=== PATIENT | male | born 1955 | race Caucasian/White ===

== ENCOUNTER 2019-11-21 05:12 | Inpatient (IN) ==
--- NOTE | 2019-10-23 15:09 | PAT Medication Instructions ---
Medication Instructions Date of Service October 23, 2019 Home Medications Potassium -- Otc 1 dose PO QAM aspirin 81 mg PO QAM cyanocobalamin (vitamin B-12) 1,000 mcg PO QAM metformin 1,000 mg PO BID venlafaxine [Effexor XR] 75 mg PO QAM venlafaxine [Effexor XR] 150 mg PO QAM ASK your surgeon for instructions aspirin 81 mg PO QAM DO NOT take the morning of surgery Potassium -- Otc 1 dose PO QAM cyanocobalamin (vitamin B-12) 1,000 mcg PO QAM metformin 1,000 mg PO BID Take morning of surgery With a small sip of water, OTHERWISE NOTHING TO EAT OR DRINK AFTER MIDNIGHT: venlafaxine [Effexor XR] 75 mg PO QAM venlafaxine [Effexor XR] 150 mg PO QAM Other Notes If you have any questions please call us at [phone] or [phone] or [phone] or [phone]
--- NOTE | 2019-10-24 14:06 | Anesthesiology Consultation ---
Date of Service October 24, 2019 Assessment & Plan (1) Encounter for pre-operative examination: COVID Status: As of 10/23 assessment, patient denies travel to endemic area, known exposure/sick contacts, or symptoms of COVID19. Patient instructed that they and their household members must follow strict social distancing guidelines, wear a mask in public and avoid travel for 14 days prior to surgery. 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 He states he has little to no contact with other people on his job, all deliveries are contactless, and he wears a mask. Preoperative COVID19 testing to be completed prior to surgery per surgeon's arrangements. Patient made aware to self-isolate as much as possible between COVID testing and surgery. Chart Review Chart Review: Acceptable Risk for Surgery and Patient seen in Pre Admission Testing Teaching & Discussion Instructed NPO after midnight before surgery, except medications with 15 cc of water. Medication instructions provided according to the PAT guidelines. History Surgery Operation Date: 11/21/19 10:50 Proposed Procedures p Left Total Ankle Arthroplasty, - Arcadio Nunez DO s Percutaneous Tendon Achilles Lenghtening, Application of Platelet-Rich Plasma - Arcadio Nunez DO Height/Weight Height: 6 ft Weight: 111.9 kg Allergies Allergy/AdvReac Type Severity Reaction Status Date / Time fluticasone Allergy Mild Unknown Verified 10/21/19 10:21 Medications Home Medications Medication Instructions Recorded Confirmed Last Taken Potassium -- Otc 1 dose PO QAM 10/21/19 10/21/19 Unknown aspirin 81 mg PO QAM 10/21/19 10/21/19 Unknown cyanocobalamin (vitamin B-12) 1,000 mcg PO QAM 10/21/19 10/21/19 Unknown [Vitamin B-12] metformin 1,000 mg PO BID 10/21/19 10/21/19 Unknown venlafaxine [Effexor XR] 75 mg PO QAM 10/21/19 10/21/19 Unknown venlafaxine [Effexor XR] 150 mg PO QAM 10/21/19 10/21/19 Unknown Past Medical History Medical History Anxiety Borderline hyperlipidemia COPD (chronic obstructive pulmonary disease) hasn't used inh in over a year Depression DM type 2 (diabetes mellitus, type 2) NIDDM History of anal fissures s/p surgical repair Exercise / Class Metabolic Activity II 4-5 Yardwork/Stairs/Walk up hill (Denies CP or SOB with 1 FOS) Past Family History Family History Father Diabetes Other No family history of adverse response to anesthesia Past Surgical History Surgical History History of ankle surgery Left History of cataract surgery History of colonoscopy History of esophagogastroduodenoscopy (EGD) History of wisdom tooth extraction Past Anesthesia History No Hx of Anesthesia Complications and No Family Hx of Anesthesia Complications History of PONV No Hx of PONV and No Hx of Motion Sickness Social History Smoking Status: Former smoker Do You Dip or Chew Tobacco: No Smoking End Date: 15 years ago Hx Alcohol Use: No Hx Substance Use: No substance use type: does not use Review of Systems Pt denies any recent chest pain, shortness of breath, palpitations, cough, fever, URI, or uncontrolled acid reflux. Physical Exam Vital Signs BP: 131/76 P: 85bpm SPO2: 96% RA T: 98.5 F R: 16 ENMT Mouth: + chipped teeth (several broken/chipped incisors); no dental restorations and no loose teeth Thyromental Distance: > or= 3.5 Finger Breadths (3.5) Mallampati Class: I Mouth / Teeth: 1. broken 2. chipped Neck normal visual inspection and + facial hair (medium length goatee, pt amenable to shaving prior to surgery); neck extension not limited Respiratory normal respiratory effort Auscultation: lungs clear to auscultation bilaterally Cardiovascular Rate/Rhythm: regular rate and regular rhythm Heart Sounds: no murmur Vessels: no carotid bruit Testing Laboratory Results 10/24/19 14:20 10/24/19 14:20 PT 10.3 Seconds (9.0-12.0) 10/24/19 14:20 INR 1.0 (0.9-1.1) 10/24/19 14:20 APTT 26.4 Seconds (21.0-31.0) 10/24/19 14:20 Hemoglobin A1c 7.4 % (4.5-5.6) H 10/24/19 14:20 Urine Color Yellow 10/24/19 Unknown Urine Appearance Clear (Clear) 10/24/19 Unknown Urine pH 5.0 (4.5-7.5) 10/24/19 Unknown Ur Specific [place] 1.021 (1.000-1.030) 10/24/19 Unknown Urine Protein Negative (Negative) 10/24/19 Unknown Urine Glucose (UA) Negative (Negative) 10/24/19 Unknown Urine Ketones Negative (Negative) 10/24/19 Unknown Urine Nitrite Negative (Negative) 10/24/19 Unknown Ur Leukocyte Esterase Negative (Negative) 10/24/19 Unknown Blood Type A Positive 10/24/19 14:20 Antibody Screen NEGATIVE 10/24/19 14:20 Electrocardiogram Date: 10/24/19 Findings: + NSR @ (82bpm) Nonspecific ST and TWA. Compared to EKG from 12/03/06, NSTWA, worse in inferior leads and now present in lateral leads. Chest X-Ray Date: 10/24/19 Findings: + NAD
--- NOTE | 2019-10-24 14:50 | XRay Report ---
XR chest Pre-admission PA/Lat HISTORY: 63 years-old Male pat preoperative exam. No acute chest complaints COMPARISON: None TECHNIQUE: PA and lateral views of the chest FINDINGS: Cardiomediastinal and hilar silhouettes are within normal limits. There are a few scattered calcified granulomata of the lung bases. No pneumothorax, pleural effusion, airspace consolidation or overt pu lmonary edema. Degenerative changes of the shoulders and spine. IMPRESSION: No acute process. ACT 112: Negative or not required by law. The above report was generated using voice recognition software. It may contain grammatical, syntax o r spelling errors. Electronically signed by: Claudio Miller M.D. 10/24/2019 2:49 PM
[2019-10-24 15:00] LABS: Basophils # (auto) 0.07 K/uL (0-0.2); Basophils % (auto) 1.2 %; Eosinophils # (auto) 0.28 K/uL (0-0.5); Eosinophils % (auto) 4.8 %; Hematocrit (blood only) 42.4 % (42-52); Hemoglobin 14.5 g/dL (14.0-18.0); Immature Granulocytes # (auto) 0.02 K/uL (0.00-0.02); Immature Granulocytes % (auto) 0.3 %; Lymphocytes % (auto) 31.1 %; Mean Corpuscular Hemoglobin 30.3 pg (25-34); Mean Corpuscular Hgb Conc 34.2 g/dL (32-36); Mean Corpuscular Volume 88.5 fL (80-100); Mean Platelet Volume 10.1 fL (7.4-10.4); Monocytes # (auto) 0.49 K/uL (0.11-0.59); Monocytes % (auto) 8.5 %; Neutrophils # (auto) 3.12 K/uL (1.4-6.5); Neutrophils % (auto) 54.1 %; Platelet Count 237 K/uL (130-400); RDW Coefficient of Variation 13.1 % (11.5-14.5); RDW Standard Deviation 42.8 fL (36.4-46.3); Red Blood Count 4.79 M/uL (4.7-6.1); White Blood Count 5.78 K/uL (4.8-10.8)
[2019-10-24 15:07] LABS: Albumin Level 3.8 gm/dl (3.4-5.0); BUN Creatinine Ratio 12.8 (10-20); Calcium 9.3 mg/dl (8.5-10.1); Creatinine Clr Calc Pharmacy 88.3 ml/min; Est GFR (African American) 81.2; Potassium 4.4 mmol/L (3.5-5.1)
[2019-10-24 15:07] LABS: Appearance Urine Clear (Clear); Bilirubin Urine Negative (Negative); Blood Urine Negative (Negative); Color Urine Yellow; Glucose Urine UA Negative (Negative); Ketones Urine Negative (Negative); Leukocyte Esterase Urine Negative (Negative); Nitrite Urine Negative (Negative); Protein Urine Negative (Negative); Specific Gravity Urine 1.021 (1.000-1.030); Urobilinogen Urine Negative (Negative)
[2019-10-24 15:10] LABS: Partial Thromboplastin Ratio 0.9; Partial Thromboplastin Time 26.4 Seconds (21.0-31.0); Prothrombin Time 10.3 Seconds (9.0-12.0)
--- NOTE | 2019-10-24 16:12 | Electrocardiogram Report ---
Test Reason : Blood Pressure : / mmHG Vent. Rate : 082 BPM Atrial Rate : 082 BPM P-R Int : 136 ms QRS Dur : 100 ms QT Int : 400 ms P-R-T Axes : 049 042 022 degrees QTc Int : 467 ms Normal sinus rhythm Nonspecific ST and T wave abnormality Abnormal ECG When compared with ECG of 03-DEC-2006 22:28, Nonspecific T wave abnormality, worse in Inferior leads Nonspecific T wave abnormality now evident in Lateral leads Confirmed by Rosas Castañeda ([id number]) on 10/24/2019 4:12:42 PM Referred By: Candy Tinajero Confirmed By:Rosas Castañeda
[2019-10-25 05:50] LABS: Estimated Average Glucose 166 mg/dl; Hemoglobin A1C 7.4 % (4.5-5.6)
--- NOTE | 2019-11-20 14:30 | History & Physical Report ---
Date of Service November 20, 2019 Assessment & Plan (1) Osteoarthritis of left ankle: Schedule Left Total Ankle Arthroplasty, Percutaneous Tendon Achilles Lenghtening, Application of Platelet-Rich Plasma for 11.21.2019. All potential risks, benefits, complications, alternatives, and rehab have been discussed with the patient and he wishes to proceed. Plan for ASA 81 mg BID x 4 wks for post op DVT prophylaxis. (2) Achilles tendon contracture, left: History of Present Illness Chief Complaint: chronic left ankle pain Primary Care Provider: Candy Tinajero MD This is a patient who has a long hx of left ankle pain. He was treated conservatively for left ankle osteoarthritis. However, he has failed all conservative management and is now being set up for surgical management. Allergies Allergy/AdvReac Type Severity Reaction Status Date / Time fluticasone Allergy Mild Unknown Verified 10/21/19 10:21 Home Medications Home Medications Medication Instructions Recorded Confirmed Type Potassium -- Otc 1 dose PO QAM 10/21/19 10/21/19 History aspirin 81 mg PO QAM 10/21/19 10/21/19 History cyanocobalamin (vitamin B-12) 1,000 mcg PO QAM 10/21/19 10/21/19 History [Vitamin B-12] metformin 1,000 mg PO BID 10/21/19 10/21/19 History venlafaxine [Effexor XR] 75 mg PO QAM 10/21/19 10/21/19 History venlafaxine [Effexor XR] 150 mg PO QAM 10/21/19 10/21/19 History Past Med/Surg History Medical History Anxiety Borderline hyperlipidemia COPD (chronic obstructive pulmonary disease) hasn't used inh in over a year Depression DM type 2 (diabetes mellitus, type 2) NIDDM History of anal fissures s/p surgical repair Surgical History History of ankle surgery Left History of cataract surgery History of colonoscopy History of esophagogastroduodenoscopy (EGD) History of wisdom tooth extraction Family History Father Diabetes Other No family history of adverse response to anesthesia Social History Smoking Status: Former smoker Smoking End Date: 15 years ago; Second Hand Exposure: No; Do You Dip or Chew Tobacco: No; Tobacco Cessation Education Requested by Patient: No Hx Alcohol Use: No Hx Substance Use: No Preferred Language: Sammarinese Communication Ability: Effective Signals Intelligence Analyst Required: No Beliefs That Will Affect Care: None Current Living Situation: Spouse Feels Safe at Home: Yes Safety Concerns: Feels Safe At This Time Physical Exam Constitutional: well developed and well nourished; no acute distress ENMT: external ear and nose normal, oropharynx normal Neck: trachea midline, no thyromegaly Respiratory: normal respiratory effort Auscultation: lungs clear to auscultation bilaterally and + diminished lung sounds Cardiovascular: Rate/Rhythm: regular rate and regular rhythm Gastrointestinal (Abdomen): normal bowel sounds, soft, nontender, no hepatosplenomegaly Musculoskeletal: Gait: + antalgic gait (left) Ankle: + effusion (left ankle), + limited ROM of ankle (left ankle dorsiflexion and plantarflexion), + ankle ROM with crepitation (left) and + joint line tenderness (ankle) (anterior left ankle); no skin erythema and no ecchymosis Skin: no rashes, warm and dry Neurologic: normal touch/pain/proprioception Psychiatric: A+Ox3, euthymic affect Speech: normal rate/rhythm/volume of speech Lymphatic: no cervical or axillary lymphadenopathy
[2019-11-21] MEDS ORDERED: ROPIVACAINE 0.5% 5 MG/ML 30 ML VIAL ONE ×2 (05:43→07:10)
[2019-11-21] MEDS ORDERED: EPINEPHrine INJ 1 MG/ML AMP ONE (05:43)
[2019-11-21] MEDS ORDERED: dexAMETHasone 4 MG TAB PO SCH (06:00)
[2019-11-21] MEDS ORDERED: CEFAZOLIN 2000MG 2,000 MG/15 ML SYR IV SCH (06:00)
[2019-11-21] MEDS ORDERED: CeleBREX 200 MG CAP PO SCH (06:00)
[2019-11-21] MEDS ORDERED: ACETAMINOPHEN 500 MG TAB PO SCH (06:00)
[2019-11-21] MEDS ORDERED: GABAPENTIN 600 MG DOSE PO SCH (06:00)
[2019-11-21] MEDS ORDERED: FAMOTIDINE 20 MG TAB PO SCH (06:00)
[2019-11-21] MEDS ORDERED: LR 15ML/HR IV SCH (06:00)
[2019-11-21] MEDS ORDERED: METOCLOPRAMIDE HCL 10 MG TABLET PO SCH (06:00)
[2019-11-21] MEDS ORDERED: OXYCODONE HCL 10 MG TABCR (OXYCONTIN) PO SCH (06:00)
[2019-11-21] MEDS ORDERED: MIDAZOLAM HCL 1 MG/ML 2ML VIAL ONE (06:36)
[2019-11-21] MEDS ORDERED: fentaNYL citrate 100 MCG/2 ML VIAL ONE ×2 (06:36→10:46)
[2019-11-21] MEDS ORDERED: INSULIN ASPART PER UNIT SC STA ×2 (06:58→11:08)
[2019-11-21] MEDS ORDERED: ePHEDrine sulfate 50 MG/ML AMP IV PRN (06:59)
[2019-11-21] MEDS ORDERED: HYDROmorphone INJ 1 MG/ML SYRINGE IV PRN (06:59)
[2019-11-21] MEDS ORDERED: fentaNYL citrate 100 MCG/2 ML VIAL IV PRN (06:59)
[2019-11-21] MEDS ORDERED: MEPERIDINE HCL 25 MG/ML CARP/VIAL IV PRN (06:59)
[2019-11-21] MEDS ORDERED: ONDANSETRON INJ 2 MG/ML 2 ML VIAL IV PRN ×2 (06:59→12:28)
[2019-11-21] MEDS ORDERED: LABETALOL HCL IV 5 MG/ML 20ML IV PRN (06:59)
[2019-11-21] MEDS ORDERED: ATROPINE SULFATE 0.1 MG/ML 10ML SYR IV PRN (06:59)
[2019-11-21] MEDS ORDERED: PHENYLEPHRINE 100MCG/ML 5ML SYR IV PRN (06:59)
[2019-11-21] MEDS ORDERED: INSULIN ASPART PER UNIT ONE (07:00)
[2019-11-21] MEDS ORDERED: CALCIUM CHLORIDE 10% 10 ML SYR IV ONE (07:01)
[2019-11-21] MEDS ORDERED: THROMBIN 5000 UNITS KIT ONE (07:01)
[2019-11-21] MEDS ORDERED: BACITRACIN INJ 50,000 UNIT VIAL ONE (07:01)
--- NOTE | 2019-11-21 07:31 | History & Physical Bridge Note ---
Date of Service November 21, 2019 History & Physical Bridge Note I have examined the patient, reviewed the History & Physical and in the interval since the performance of the History & Physical I have noted the following changes of clinical significance: no changes noted
[2019-11-21] MEDS ORDERED: PROPOFOL IV EMULSION 10 MG/ML 20 ML VIAL IV ONE (10:00)
[2019-11-21] MEDS ORDERED: LIDOCAINE HCL 2% 2 ML VIAL/AMP(20MG/ML) INFIL ONE (10:00)
[2019-11-21] MEDS ORDERED: ONDANSETRON INJ 2 MG/ML 2 ML VIAL ONE (10:00)
[2019-11-21] MEDS ORDERED: KETOROLAC 30 MG/ML VIAL ONE (10:00)
--- NOTE | 2019-11-21 10:30 | Fluoroscopy Report ---
[place] ankle LT 2V HISTORY: 63 years-old Male LEFT ANKLE tibiotalar arthroplasty COMPARISON: None TECHNIQUE: 2 spot fluoroscopic images of the left ankle were obtained utilizing 118.4 seconds fluoros copy time FINDINGS: Tibiotalar arthroplasty. Satisfactory alignment. No acute fracture. There is suggestion of hardware r emoval of the distal metaphysis. Expected postsurgical soft tissue swelling and deep tissue air with skin jyothi. Severe subtalar osteoarthritis. IMPRESSION: Fluoroscopic assistance as above. Please see operative report for further details. ACT 112: Negative or not required by law. The above report was generated using voice recognition software. It may contain grammatical, syntax o r spelling errors. Electronically signed by: Claudio Miller M.D. 11/21/2019 10:29 AM
--- NOTE | 2019-11-21 11:04 | Post Operative Brief Note ---
Immediate Post Op Note v1 Date of Surgery November 21, 2019 Pre & Post Diagnosis Operation Date: 11/21/19 07:15 Pre-Op Diagnosis: Left ankle osteoarthritis, degenerative joint disease left ankle, Achilles tendon contracture left, varus deformity left ankle Post-Op Diagnosis: Left ankle osteoarthritis, degenerative joint disease left ankle, Achilles tendon contracture left, varus deformity left ankle I identified the patient and participated in the time-out.: Yes Procedure Operation Date: 11/21/19 07:15 Actual Procedures p Left Total Ankle Arthroplasty, STAR total ankle replacement (large talus, extra-large tibia, 9 mm polyethylene) (Left) - Arcadio Nunez DO s Percutaneous Tendon Achilles Lengthening, Application of Platelet-Rich Plasma concentrate- Arcadio Nunez DO Surgeon Arcadio Nunez DO Seal Skinner Christopher Muller PA-C Estimated Blood Loss 5 Findings Consistent with Post-Op Diagnosis Specimens Bone and tissue left ankle Drains Hemovac Drain Anesthesia Type General Regional Complications none Disposition Accompanied Patient To Recovery: Yes Disposition: Recovery Room Overlapping Procedure I was present for: the critical portions of procedure. I was immediately available: during the entire case.
[2019-11-21] MEDS ORDERED: NovoLIN-R INSULIN PER UNIT CHARGE ONE (11:09)
--- NOTE | 2019-11-21 12:02 | Operative Report (OR) ---
DATE OF OPERATION: 11/21/2019 PREOPERATIVE DIAGNOSES: 1. Left ankle severe osteoarthritis. 2. Degenerative joint disease, left ankle. 3. Varus deformity, left ankle. 4. Achilles tendon contracture, left. POSTOPERATIVE DIAGNOSES: 1. Left ankle severe osteoarthritis. 2. Degenerative joint disease, left ankle. 3. Varus deformity, left ankle. 4. Achilles tendon contracture, left. PROCEDURES: 1. Left STAR total ankle replacement using large talus, extra large tibia and 9 mm polyethylene components. 2. Percutaneous tendo Achilles lengthening. 3. Application of platelet rich plasma concentrate. SURGEON: Arcadio Nunez DO. SAND TECHNICIAN: Christopher Muller PA-C, who was present for patient positioning, sterile prep and drape, management of retractors and instruments. He was present through the critical portions of the case including wound closure, application of sterile dressing and transport of the patient to recovery. ANESTHESIA: General, regional. SPECIMENS: Bone and tissue, left ankle. DRAINS: Hemovac x1. COMPLICATIONS: None. BLOOD LOSS: 5 mL. PERTINENT HISTORY: This is a 63-year-old gentleman with chronic progressive and worsening pain, deformity and loss of function of the left ankle. He did attempted and failed conservative management including use of brace, use of shoe wear modification, physician-directed home exercises, anti-inflammatories, rest and use of an assistive device. Failed injections. Radiographs demonstrate severe complete loss of joint space, marginal osteophytes, subchondral sclerosis, subchondral cysts and varus deformity of the left ankle. The patient was then scheduled for surgery as indicated. All potential risks, benefits, complications, alternatives, rehab, potential for incomplete relief of symptoms, need for further surgery, DVT, PE, , persistent pain, swelling, scarring, weakness, neurovascular injury, wound complications, hardware failure, nonunion, malunion, bone fracture were discussed with the patient. The patient decided to proceed with the procedure as indicated. PROCEDURE: The patient was taken to the operative suite after popliteal block was administered. The patient was placed supine on the operating room table. Tourniquet was applied over the left lower extremity. After the patient was anesthetized, LMA was placed. The left lower extremity was then sterilely prepped and draped in the usual sterile fashion [id number], elevated and exsanguinated with an Esmarch bandage, and tourniquet inflated to 350 mmHg. Next, a 15-blade scalpel incision made in the midline of the left ankle taking care to identify the tibialis anterior. The incision was made lateral to the tibialis anterior and centered over the extensor hallucis longus tendon. The incision was deepened through subcutaneous tissue. Meticulous hemostasis was achieved with electrocautery. Full-thickness skin flaps were developed. Superficial peroneal nerve was identified, retracted, and protected. Next, the extensor retinaculum was incised along the skin incision to the lateral aspect of the tibialis anterior. Tibialis anterior was retracted medially. The extensor hallucis longus and the neurovascular bundle beneath were retracted laterally. The small crossing vessels were cauterized. The anterior capsule was then incised in its midline and then elevated medially and laterally with electrocautery. Appropriate soft tissue retractors were placed carefully to maintain essentially zero skin tension on the superficial skin. After the capsule was elevated and retracted medially and laterally to visualize the medial and lateral malleoli clearly, rongeur was used to perform synovectomy and remove any excess debris and loose bodies. Next, the wound was irrigated and suctioned. Good visualization was obtained. At this point the anterior lip of hypertrophic bone was resected from the tibia with an osteotome and mallet followed by resection of a small osteophyte medially at the medial malleolus. Next, the tibial plafond could be clearly visualized. The neck of the talus was then rongeured down to the true neck of the talus after all hypertrophic osteophytes were excised. Next, attention was directed toward the proximal tibia at which point a 15-blade scalpel incision was made anterior of the tibial tubercle the inferior aspect using the external alignment guide as a guide for pin placement which was essentially in the midline of the tibia with a slight degree of plantar flexion. Guide was placed anteriorly using a small osteotome in the medial gutter of the ankle joint to press smith helper in alignment. Next, the small 2.4 mm pin was placed adjacent to the tibial tubercle and the alignment guide was placed approximately one fingerbreadth above the soft tissue and fastened there at approximately four notches medialized proximally. Next, the T-handle guide was placed anteriorly and then this was aligned with the small osteotome and placed in the medial gutter of the ankle joint to make this parallel and then also the orientation of the second ray of the foot was used to guide as well. Next, the more proximal alignment block was pinned unicortically followed by placement of the lateral alignment guide on the tibial alignment jig and the T-handle was removed. Distal cutting block was then fastened to the distal aspect of the tibial alignment guide and then x-rays obtained in AP and lateral projections of the ankle and tibia assuring appropriate alignment of the tibial alignment guide and the tibial cutting block. After appropriate alignment was established, the distal cutting block was then pinned in place with two 2.4 mm pins, one in the proximal and then secondarily in the distal aspect of the tibial cutting guide and the tibial cutting guide was aligned at the inferior aspect at the level of the tibial plafond. Next, after the tibial cutting blocks were aligned and confirmed, the medial and lateral saw capture pins were placed followed by resection of the distal tibia with a sagittal saw. The pins were removed and the distal cutting guide was then removed followed by removal of the distal tibial cut fragment after it was morselized with a small osteotome and resected with a rongeur. A cervical lamina civil attorney was placed in the ankle joint to open the ankle joint followed by resection of the posterior fragments from the distal tibia cut. Next, the talar cutting guide paddle was placed at the distal tibial cutting guide and fastened in place. The ankle was held in neutral dorsiflexion. Four pins were placed in the talar cutting block fixing the talus in appropriate alignment. Next, after the saw capture pins were placed, the sagittal saw was used to resect the superior aspect of the talus. The talar cutting block guide was then removed as well as the pins and talus. This was then followed by placement of datum guide which was initially placed as an extra small position with regard to position on the talus as well as orientation along the second ray. Central pin was placed and then the posterior capture cutting guide was attached and the anterior milling guide was also fastened with two football screws. Next, the anterior mill was used to resect the anterior aspect of the talar dome. Posterior cut was made. This jig was then removed followed by placement of the shoulder cutting guide and the reciprocating saw was just resect the shoulder portions of the talus using the laser cut line. This guide was then removed leaving the central pin followed by resection of the fragments using a small osteotome and mallet. This was then elevated and resected. Next, the window trial was firmly affixed to the superior aspect of the talus using fluoroscopic confirmation of alignment and position. Next, the central keel was drilled. The window trial was then removed following use of the central keel punch. This was also confirmed using fluoroscopic surgical first assistant. The wound was copiously irrigated with pulsatile lavage with Bacitracin additive followed by suctioning of the talar component. Platelet-rich plasma was injected at this time at the undersurface of the implant as well as in the talar dome. The final talar component was impacted in place with fluoroscopic assistance. Next, a trial polyethylene 6 mm was placed in the joint and the posterior aspect of the tibia was measured both medially and laterally. Appropriate size tibial drill guide was then placed and fastened with two pins. This was confirmed with x-ray and then the barrel drills x 2 were performed making certain to aim proximally. Next, the barrel cutting jig was then used to perform the final punch medially and laterally. The trial plate was then removed after appropriate sized polyethylene was sized. Next, the joint was copiously irrigated with pulsatile lavage followed by suctioning of all surfaces. The tibia was then injected with platelet-rich plasma as well as the superior aspect of the tibial final plate implant. This was then impacted in place with the trial polyethylene liner in place to ensure adequate positioning. Next, the final impactor was used to seat the tibial base tray flush with the anterior aspect of the tibia followed by bone grafting of the anterior barrel holes with local bone graft. This was impacted in place with a mallet and bone tamp. This then followed by confirmation with C-arm and then final polyethylene was inserted without difficulty. Excellent range of motion and stability was obtained. No liftoff was noted. The platelet-rich plasma was then sprayed within the joint and all surfaces and also into the subcutaneous tissue and deep soft tissue. A 10-Romansh single-lumen Hemovac drain was placed anterolaterally followed by closure of the ankle joint capsule with #1 Vicryl. The extensor retinaculum was closed using interrupted 2-0 Vicryl, the dermis closed buried 3-0 Vicryl, and skin was closed using 3-0 Monocryl and Dermabond. A sterile compressive bulky Nate Brown plaster splint was applied overwrapped with an Bakari wrap. Tourniquet was released. The patient was awakened and taken to recovery in stable condition. I attest to the content of the Intraoperative Record and any orders documented therein. Any exceptions are noted below. MADISOND
--- NOTE | 2019-11-21 12:05 | XRay Report ---
XR ankle LT min 3V routine CLINICAL HISTORY: post op left ankle COMPARISON: None. DISCUSSION: There are postsurgical changes of a left ankle arthroplasty. The bones are osteopenic. Th ere is no dislocation. The fine bony detail is obscured by overlying plaster cast. IMPRESSION: Postsurgical changes of a total left ankle arthroplasty. ACT 112: Negative or not required by law. Electronically signed by: Lloyd Mcmahon M.D. 11/21/2019 12:03 PM
--- NOTE | 2019-11-21 12:10 | Anesthesiology Progress Note ---
Date of Service November 21, 2019 Anesthesia Post Procedure Vital Signs Vital Signs: Temp Pulse Pulse Resp BP BP Pulse Ox 11/21/19 12:00 80 16 124/77 95 11/21/19 11:50 36.8 C 82 16 141/74 H 96 11/21/19 11:40 36.8 C 88 16 154/72 H 96 11/21/19 11:30 85 16 140/81 92 11/21/19 11:20 81 16 162/88 H 96 11/21/19 11:10 103 H 16 150/81 H 95 11/21/19 11:03 37.2 C 98 H 16 132/86 95 11/21/19 06:22 78 16 133/73 97 11/21/19 05:44 37.2 C 84 20 140/86 97 Pain Intensity Left Ankle: Pain Intensity: 0 Transfer of Care Handoff Completed per policy Notes Mental Status: alert / awake / arousable Patient Amnestic to Procedure: Yes Nausea / Vomiting: adequately controlled Pain: adequately controlled Airway Patency, RR, SpO2: stable & adequate BP & HR: stable & adequate Hydration State: stable & adequate Anesthetic Complications: no major complications apparent and Pt Satisfied with anesthetic care Notes: The patient's BSG was elevated preoperatively. He was given Novolog 6 units SC. His postop BSG remained elevated so he was given 5 more units Novolog SC. His latest BSG is 255. The patient is awake and stable. I spoke with the [facility] medicine team and they will treat his hyperglycemia on the floor.
--- NOTE | 2019-11-21 12:23 | Hospitalist Consultation ---
Date of Consultation November 21, 2019 Assessment & Plan (1) Osteoarthritis of left ankle: Pt underwent left total ankle arthroplasty today - Management of pain, DVT prophylaxis, and PT per primary service - Encourage ambulation once cleared by primary service (2) DM type 2 (diabetes mellitus, type 2): - Diabetic diet - HOLD Metformin while admitted - Use insulin for management of hyperglycemia while admitted - pharmacy has been consulted for glycemic management - Blood sugars ACHS (3) Depression: - Continue outpatient Effexor (pt took this AM - resume tomorrow) (4) Dyslipidemia: Not currently on any medications for this - occasionally uses supplements. Follow-up with PCP as outpatient Patient seen and reviewed with collaborating physician, Dr. Fonseca. Plan of case discussed and as outlined above. Thank you for this consultation. We will continue to follow this patient with you. Please call with any questions. [facility] at [phone]. Brian Torres PA-C Supervising Physician Co-Signing Physician Notes Patient seen and examined by me, care coordinated with Brian Torres PA-C, please refer to my note above for further detail. 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 Nunez. Patient is doing well postoperatively, currently sitting up in bed, eating lunch. Patient's is at the bedside. He only complains of sensory loss on his left lower extremity, below the knee. Denies chest pain, palpitations, SOB, wheezing, chest tightness, N/V. He is currently alert and oriented and answering questions appropriately. Heart sounds regular, lung sounds clear to auscultation laterally, without any wheezing rhonchi or crackles noted. Abdomen is soft, nontender nondistended, sluggish bowel sounds noted. Skin is warm well perfused. Patient is moving upper extremities and right lower extremity without difficulty. Drain at left ankle noted, draining serosanguineous fluid. Patients DM is typically managed on Metformin with most recent A1c on 10/24/19 being 7.4 % (prior was 8.0& in July). Pt did receive dexamethasone pre- operatively. Will cover now with insulin. Continue to monitor vital signs, and poss. post-op blood loss anemia. A. Knab, MD History of Present Illness Reason for Consultation: Post-operative medical management Attending Physician: Arcadio Nunez DO History of Present Illness This is a 63 y/o male with a PMH of DM2, dyslipidemia, depression, anxiety, former tobacco use, and left ankle arthritis who underwent left total ankle arthoplasty today by Dr. Nunez. We have been consulted for post-operative medical management. Patients DM is typically managed on Metformin with most recent A1c on 10/24/19 being 7.4 (prior was 8.0 in July). During his pre- operative work-up, pts EKG showed changes from prior so PCP ordered an ECHO. ECHO showed LVEF of 66% and patient was determined to be an acceptable risk for surgery. Post-operatively patients blood sugars have been elevated, even with 11 units of insulin, so we have specifically been asked to address blood glucose management. Pt did receive dexamethasone pre-operatively. Pt was prescribed a statin in July but does never started due to concern for side effects. Instead, pt reports that he is eating kimchee and taking occasional red yeast rice to manage his cholesterol instead. Currently, he is seen lying in bed post-operatively. He reports overall feeling well, other than tired and a bit groggy. He does have a mild sore throat that he relates to the ETT. He has no ankle pain as the block is currently still in effect. He denies chest pain, palpitations, SOB, wheezing, chest tightness, N/V. He does have a history of occasional constipation but did not note that as an issue over the past few days. Allergies Allergy/AdvReac Type Severity Reaction Status Date / Time fluticasone Allergy Mild Rash Verified 11/21/19 05:37 Home Medications Home Medications Medication Instructions Recorded Confirmed Type Potassium -- Otc 1 dose PO QAM 10/21/19 11/21/19 History aspirin 81 mg PO QAM 10/21/19 11/21/19 History cyanocobalamin (vitamin B-12) 1,000 mcg PO QAM 10/21/19 11/21/19 History [Vitamin B-12] metformin 1,000 mg PO BID 10/21/19 11/21/19 History venlafaxine [Effexor XR] 75 mg PO QAM 07/21/20 08/21/20 History venlafaxine [Effexor XR] 150 mg PO QAM 10/21/19 11/21/19 History Patient History Medical History (Updated 11/21/19 @ 12:22 by Serene Torres PA-C) Anxiety Borderline hyperlipidemia COPD (chronic obstructive pulmonary disease) hasn't used inh in over a year Depression DM type 2 (diabetes mellitus, type 2) NIDDM Dyslipidemia Eczema History of anal fissures s/p surgical repair Surgical History History of ankle surgery Left History of cataract surgery History of colonoscopy History of esophagogastroduodenoscopy (EGD) History of hemorrhoidectomy History of wisdom tooth extraction Family History Father Diabetes Other No family history of adverse response to anesthesia Social History Smoking Status: Former smoker Smoking End Date: 15 years ago; Second Hand Exposure: No; Do You Dip or Chew Tobacco: No; Tobacco Cessation Education Requested by Patient: No Hx Alcohol Use: No Hx Substance Use: No Preferred Language: Amharic 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 Beliefs That Will Affect Care: None marital status: Current Living Situation: Spouse Feels Safe at Home: Yes Safety Concerns: Feels Safe At This Time Review of Systems Review of Systems: All systems reviewed & are unremarkable except as noted in HPI & below Constitutional: + fatigue; no fever, no chills and no sweats Eyes: no diplopia Ear, Nose, Mouth, Throat: + sore throat; no nasal congestion, no nasal discharge and no dysphagia Respiratory: no cough, no chest congestion, no dyspnea and no wheezing Cardiovascular: no chest pain, no palpitations, no lightheadedness, no syncope and no calf pain Gastrointestinal: no abdominal pain, no nausea and no vomiting Genitourinary: no dysuria and no hematuria Musculoskeletal: no back pain and no myalgia Integumentary: no rash and no skin ulcer Neurologic: no seizure-like activity, no dizziness, no headache(s) and no con fusion Psychiatric: no depression and no anxiety Physical Exam Constitutional: WD/WN, vitals as above no acute distress Eyes: + anicteric sclerae; no conjunctival abnormality ENMT: external ear and nose normal, oropharynx normal Neck: trachea midline Respiratory: normal respiratory effort, lungs clear to auscultation Auscultation: no rales, no rhonchi and no wheezes Cardiovascular: Rate/Rhythm: regular rate and regular rhythm Heart Sounds: no gallop and no murmur Vessels: dorsalis pedis pulses present Extremities: no calf tenderness Gastrointestinal (Abdomen): Inspection/Auscultation: normal bowel sounds; abdomen not distended Percussion/Palpation: abdomen soft; abdomen nontender Musculoskeletal: Head/Neck/Chest: normocephalic, head atraumatic and neck supple Right foot plantar and dorsiflexion intact, left foot not yet able to move Skin: no jaundice Drain in left ankle with small amount of sanguinous drainage Neurologic: Speech / Cognition: normal speech LLE sensation intact to light touch to just above ankle, diminished from left ankle to toes Psychiatric: A+Ox3, euthymic affect Results & Data Results & Data ([facility]) Vital Signs (Past 12 Hours) Vital Signs Temp Pulse Pulse Resp BP BP Pulse Ox 11/21/19 12:00 80 16 124/77 95 11/21/19 11:50 36.8 C 82 16 141/74 H 96 11/21/19 11:40 36.8 C 88 16 154/72 H 96 11/21/19 11:30 85 16 140/81 92 11/21/19 11:20 81 16 162/88 H 96 11/21/19 11:10 103 H 16 150/81 H 95 11/21/19 11:03 37.2 C 98 H 16 132/86 95 11/21/19 06:22 78 16 133/73 97 11/21/19 05:44 37.2 C 84 20 140/86 97 Laboratory Results 10/24/19 10/24/19 10/24/19 14:20 14:20 14:20 WBC 5.78 RBC 4.79 Hgb 14.5 Hct 42.4 MCV 88.5 MCH 30.3 MCHC 34.2 RDW Std Deviation 42.8 RDW Coeff of Ginny 13.1 Plt Count 237 MPV 10.1 Immature Gran % (Auto) 0.3 Neut % (Auto) 54.1 Lymph % (Auto) 31.1 [place] % (Auto) 8.5 Eos % (Auto) 4.8 Baso % (Auto) 1.2 Neut # (Auto) 3.12 Lymph # (Auto) 1.80 [place] # (Auto) 0.49 Eos # (Auto) 0.28 Baso # (Auto) 0.07 Immature Gran # (Auto) 0.02 PT INR APTT PTT Ratio Sodium 139 Potassium 4.4 Chloride 105 Carbon Dioxide 28 Anion Gap 6.0 BUN 14 Creatinine 1.12 Est Cr Clr Drug Dosing 88.3 Est GFR ( Amer) 81.2 Est GFR (Non-Af Amer) 70.0 BUN/Creatinine Ratio 12.8 Glucose 181 H POC Glucose Estimat Average Glucose Hemoglobin A1c Calcium 9.3 Albumin 3.8 Urine Color Urine Appearance Urine pH Ur Specific [place] Urine Protein Urine Glucose (UA) Urine Ketones Urine Blood Urine Nitrite Urine Bilirubin Urine Urobilinogen Ur Leukocyte Esterase Blood Type A Positive Antibody Screen NEGATIVE 10/24/19 10/24/19 10/24/19 14:20 14:20 Unknown WBC RBC Hgb Hct MCV MCH MCHC RDW Std Deviation RDW Coeff of Ginny Plt Count MPV Immature Gran % (Auto) Neut % (Auto) Lymph % (Auto) [place] % (Auto) Eos % (Auto) Baso % (Auto) Neut # (Auto) Lymph # (Auto) [place] # (Auto) Eos # (Auto) Baso # (Auto) Immature Gran # (Auto) PT 10.3 INR 1.0 APTT 26.4 PTT Ratio 0.9 Sodium Potassium Chloride Carbon Dioxide Anion Gap BUN Creatinine Est Cr Clr Drug Dosing Est GFR ( Amer) Est GFR (Non-Af Amer) BUN/Creatinine Ratio Glucose POC Glucose Estimat Average Glucose 166 Hemoglobin A1c 7.4 H Calcium Albumin Urine Color Yellow Urine Appearance Clear Urine pH 5.0 Ur Specific [place] 1.021 Urine Protein Negative Urine Glucose (UA) Negative Urine Ketones Negative Urine Blood Negative Urine Nitrite Negative Urine Bilirubin Negative Urine Urobilinogen Negative Ur Leukocyte Esterase Negative Blood Type Antibody Screen 11/21/19 11/21/19 11/21/19 05:33 07:46 09:57 WBC RBC Hgb Hct MCV MCH MCHC RDW Std Deviation RDW Coeff of Ginny Plt Count MPV Immature Gran % (Auto) Neut % (Auto) Lymph % (Auto) [place] % (Auto) Eos % (Auto) Baso % (Auto) Neut # (Auto) Lymph # (Auto) [place] # (Auto) Eos # (Auto) Baso # (Auto) Immature Gran # (Auto) PT INR APTT PTT Ratio Sodium Potassium Chloride Carbon Dioxide Anion Gap BUN Creatinine Est Cr Clr Drug Dosing Est GFR ( Amer) Est GFR (Non-Af Amer) BUN/Creatinine Ratio Glucose POC Glucose 262 H 218 H 193 H Estimat Average Glucose Hemoglobin A1c Calcium Albumin Urine Color Urine Appearance Urine pH Ur Specific [place] Urine Protein Urine Glucose (UA) Urine Ketones Urine Blood Urine Nitrite Urine Bilirubin Urine Urobilinogen Ur Leukocyte Esterase Blood Type Antibody Screen Diagnostic Findings CXR 10/24/19 - IMPRESSION: No acute process. LEFT Ankle X-ray 11/21/19 - IMPRESSION: Postsurgical changes of a total left ankle arthroplasty Medications Administered Acetaminophen (Acetaminophen 500 Mg Tab) 1,000 mg PO PREOP KARLA Stop: 11/21/19 18:00 Last Admin: 11/21/19 06:02 Dose: 1,000 mg Documented by: [id number] Celecoxib (Celebrex 200 Mg Cap) 200 mg PO PREOP KARLA Stop: 11/21/19 18:00 Last Admin: 11/21/19 06:02 Dose: 200 mg Documented by: [id number] Dexamethasone (Dexamethasone 4 Mg Tab) 8 mg PO PREOP KARLA Stop: 11/21/19 18:00 Last Admin: 11/21/19 06:01 Dose: 8 mg Documented by: [id number] Famotidine (Famotidine 20 Mg Tab) 20 mg PO PREOP KARLA Stop: 11/21/19 18:00 Last Admin: 11/21/19 06:01 Dose: 20 mg Documented by: [id number] Gabapentin (Gabapentin 600 Mg Dose) 600 mg PO PREOP KARLA Stop: 11/21/19 18:00 Last Admin: 11/21/19 06:01 Dose: 600 mg Documented by: [id number] Cefazolin Sodium (Ancef 2000mg) 2,000 mg in 15 mls @ 3.75 mls/min IV PREOP KARLA; Protocol Stop: 11/21/19 18:00 Last Admin: 11/21/19 07:50 Dose: 3.75 mls/min Documented by: [id number] Lactated Ringer's (Lr) 1,000 mls @ 15 mls/hr IV .Q24H KARLA Stop: 11/22/19 05:59 Last Infusion: 11/21/19 07:50 Dose: 0 mls/hr Documented by: [id number] Admin: 11/21/19 05:40 Dose: 15 mls/hr Documented by: [id number] Metoclopramide HCl (Metoclopramide Hcl 10 Mg Tablet) 10 mg PO PREOP KARLA Stop: 11/21/19 18:00 Last Admin: 11/21/19 06:01 Dose: 10 mg Documented by: [id number] Oxycodone HCl (Oxycodone Hcl 10 Mg Tabcr (Oxycontin)) 10 mg PO PREOP KARLA Stop: 11/21/19 18:00 Last Admin: 11/21/19 06:02 Dose: 10 mg Documented by: [id number] Discontinued Medications Bacitracin (Bacitracin Inj 50,000 Unit Vial) Confirm Administered Dose 50,000 units .ROUTE .STK-MED ONE Stop: 11/21/19 07:02 Last Admin: 11/21/19 10:20 Dose: 50,000 units Documented by: [id number] Calcium Chloride (Calcium Chloride 10% 10 Ml Syr) Confirm Administered Dose 1,000 mg IV .STK-MED ONE Stop: 11/21/19 07:02 Last Admin: 11/21/19 08:37 Dose: 1,000 mg Documented by: [id number] Insulin Aspart (Insulin Aspart Per Unit) 6 units SC NOW [facility] Stop: 11/21/19 06:59 Last Admin: 11/21/19 07:05 Dose: 6 units Documented by: [id number] Cosigned by: [id number] Insulin Human Regular (Novolin-R Insulin Per Unit Charge) Confirm Administered Dose 5 units .ROUTE .STK-MED ONE Stop: 11/21/19 11:10 Last Admin: 11/21/19 11:13 Dose: 5 units Documented by: [id number] Cosigned by: [id number] Thrombin (Thrombin 5000 Units Kit) Confirm Administered Dose 10,000 units .ROUTE .STK-MED ONE Stop: 11/21/19 07:02 Last Admin: 11/21/19 08:37 Dose: 10,000 units Documented by: [id number] (1) DM type 2 (diabetes mellitus, type 2) Diabetes mellitus nursing home insulin use: without nursing home use (2) Osteoarthritis of left ankle Osteoarthritis type: unspecified Qualified Code(s): M19.072 - Primary osteoarthritis, left ankle and foot
[2019-11-21] MEDS ORDERED: MAGNESIUM HYDROXIDE SUSP 30 ML UDC PO PRN (12:28)
[2019-11-21] MEDS ORDERED: NALOXONE HCL 0.4 MG/1 ML VIAL/CARP IV PRN (12:28)
[2019-11-21] MEDS ORDERED: bisacodyL 10 MG SUPP PR PRN (12:28)
[2019-11-21] MEDS ORDERED: OXYCODONE HCL IR 5 MG TAB (IMMEDIATE RELEASE) PO PRN (12:28)
[2019-11-21] MEDS ORDERED: HYDROmorphone INJ 0.5 MG/0.5 ML SYR IV PRN (12:28)
[2019-11-21] MEDS ORDERED: TAMSULOSIN HCL 0.4 MG CAP PO PRN (12:28)
[2019-11-21] MEDS ORDERED: METOCLOPRAMIDE HCL INJ 5 MG/ML 2 ML VIAL IV PRN (12:28)
[2019-11-21] MEDS ORDERED: PHARMACY GLYCEMIC MGMT CONSULT PRN (12:40)
[2019-11-21] MEDS: SODIUM CHLORIDE 0.9% 1000ML 1,000 ML IV SCH ×2 (12:41→21:35)
[2019-11-21] MEDS ORDERED: INSULIN GLARGINE SOLOSTAR 100 UNITS/ML 3 ML PEN SC ONE (13:00)
[2019-11-21] MEDS ORDERED: CARBOHYDRATES FOR HYPOGLYCEMIA PO PRN (13:00)
[2019-11-21] MEDS ORDERED: GLUCAGON FOR INJ 1 MG VIAL SQ PRN (13:00)
[2019-11-21] MEDS ORDERED: GLUCOSE 10 TABS/TUBE PO PRN (13:00)
[2019-11-21] MEDS ORDERED: DEXTROSE 50% 50 ML SYRINGE IV PRN (13:00)
[2019-11-21] MEDS ORDERED: GLUCOSE 40% GEL 15 GM TUBE PO PRN (13:00)
[2019-11-21] MEDS: CEFAZOLIN 2000MG 2,000 MG/15 ML SYR IV SCH (13:46)
[2019-11-21] MEDS: KETOROLAC TROMETHAMINE 15 MG/ML VIAL IV SCH ×2 (13:47→20:26)
[2019-11-21] MEDS: ACETAMINOPHEN 500 MG TAB PO SCH ×2 (13:48→21:34)
[2019-11-21] MEDS: INSULIN ASPART 100 UNITS/ML 3 ML PEN SC SCH ×3 (14:23→20:31)
--- NOTE | 2019-11-21 14:33 | Pharmacy Report ---
Pharmacy Glycemic Short Note 2 - Date of Service November 21, 2019 - Glycemic Short BSG Results (Last 24 hours): 11/21/19 11/21/19 11/21/19 05:33 07:46 09:57 POC Glucose 262 H 218 H 193 H 11/21/19 11/21/19 11/21/19 11:05 11:39 12:43 POC Glucose 246 H 255 H 287 H OUTPATIENT ANTIDIABETIC REGIMEN: * metformin 1000 mg Po BID * A1c = 7.4% (11/04/19) ASSESSMENT: * Marcell is a 63 yo T2DM male s/p L ankle surgery * He received dexamethasone 8 mg PO pre-op. I anticipate short term steroid induced hyperglycemia. In addition to this, patients baseline BSG was markedly elevated (262 mg/dL). * Pt is maintained on metformin as an outpatient. Will hold metformin and utilize weight based SQ basal/bolus insulin. Metformin will be resumed once evidence of renal function is at baseline and tolerating an oral diet. * A short term IV insulin infusion may be needed if BSG does not start trending downward at dinner. PLAN FOR INPATIENT GLYCEMIC CONTROL: * Hold outpatient oral diabetes medications * Basal insulin * Lantus 25 units SQ x 1 * Lantus 0-12 units SQ at bedtime (12 units if BSG is 200 mg/dL or above) * Bolus insulin * NovoLog per scale ACHS or Q6hrs while NPO * Goal Range: Low 110 mg/dL - High 140 mg/dL * Correction Factor: 18 mg/dL/unit * Nutritional / Prandial insulin per carb ratio of 1 unit per 6 grams CHO consumed * Add overnight checks with coverage at 00 and 04 for POD #0
[2019-11-21] MEDS ORDERED: COUGH DROP (SUGAR FREE) LOZ 24 LOZ/1 BOX BUCCAL ONE (15:44)
[2019-11-21] MEDS: DOCUSATE SODIUM 100 MG CAP PO SCH (20:26)
[2019-11-21] MEDS: ASPIRIN 81 MG ECTAB PO SCH (20:26)
[2019-11-21] MEDS ORDERED: SENNA 8.6 MG TAB PO SCH (21:00)
[2019-11-21] MEDS ORDERED: INSULIN GLARGINE SOLOSTAR 100 UNITS/ML 3 ML PEN SC SCH (21:00)
[2019-11-22] MEDS: CEFAZOLIN 2000MG 2,000 MG/15 ML SYR IV SCH (00:39)
[2019-11-22] MEDS: KETOROLAC TROMETHAMINE 15 MG/ML VIAL IV SCH ×2 (02:48→09:10)
[2019-11-22] MEDS: ACETAMINOPHEN 500 MG TAB PO SCH ×2 (05:54→12:59)
[2019-11-22] MEDS ORDERED: INSULIN GLARGINE SOLOSTAR 100 UNITS/ML 3 ML PEN SC ONE (08:30)
[2019-11-22] MEDS ORDERED: CYANOCOBALAMIN 500 MCG TABLET (VITAMIN B-12) PO SCH (09:00)
[2019-11-22] MEDS ORDERED: POTASSIUM OTC PO SCH (09:00)
[2019-11-22] MEDS ORDERED: VENLAFAXINE HCL XR 75 MG CAPXR PO SCH (09:00)
[2019-11-22] MEDS ORDERED: MULTIVITAMIN TAB PO SCH (09:00)
[2019-11-22] MEDS ORDERED: VENLAFAXINE HCL XR 150 MG CAPXR PO SCH (09:00)
[2019-11-22] MEDS: INSULIN ASPART 100 UNITS/ML 3 ML PEN SC SCH ×2 (09:05→12:51)
[2019-11-22] MEDS: DOCUSATE SODIUM 100 MG CAP PO SCH (09:08)
[2019-11-22] MEDS: ASPIRIN 81 MG ECTAB PO SCH (09:09)
--- NOTE | 2019-11-22 09:36 | Orthopedic Progress Note ---
Date of Service November 22, 2019 Assessment & Plan (1) Osteoarthritis of left ankle: Postop day 1 PT/OT protocols. Nonweightbearing left lower extremity DVT prophylaxis-aspirin p.o. twice daily, SCDs Pain management as written. Medical management as per [facility] service. Labs pending this morning DC plans-plan for discharge to home if remaining medically/ orthopedically stable. Admission and Anticipated Discharge Date Admission Date: November 21, 2019 Subjective Postop day 1 Patient sitting up in bed awake and alert. He is eating breakfast this morning. No complaints this morning. Pain is well controlled. He feels well. Physical Exam Physical Exam: Splint/dressing is clean, dry, and intact. Toes are pink and warm. Capillary refill is less than 2 seconds. He has good range of motion of his toes at this time and has good sensation. Hemovac drain is present and had a 50 mL's from the previous shift. Results & Data ([facility]) Vital Signs (Past 12 Hours) Vital Signs Temp Pulse Resp BP Pulse Ox 11/22/19 08:02 36.5 C 81 16 139/80 95 11/22/19 04:06 36.5 C 81 16 132/73 97 11/21/19 23:34 36.5 C 84 16 109/61 95 (1) Osteoarthritis of left ankle Osteoarthritis type: unspecified Qualified Code(s): M19.072 - Primary osteoarthritis, left ankle and foot
[2019-11-22 10:00] LABS: Hematocrit (blood only) 40.2 % (42-52); Hemoglobin 13.4 g/dL (14.0-18.0); Mean Corpuscular Hemoglobin 30.4 pg (25-34); Mean Corpuscular Hgb Conc 33.3 g/dL (32-36); Mean Corpuscular Volume 91.2 fL (80-100); Mean Platelet Volume 9.9 fL (7.4-10.4); Platelet Count 231 K/uL (130-400); RDW Coefficient of Variation 13.5 % (11.5-14.5); RDW Standard Deviation 44.7 fL (36.4-46.3); Red Blood Count 4.41 M/uL (4.7-6.1); White Blood Count 11.48 K/uL (4.8-10.8)
[2019-11-22 10:20] LABS: BUN Creatinine Ratio 13.2 (10-20); Calcium 8.4 mg/dl (8.5-10.1); Creatinine Clr Calc Pharmacy 85.5 ml/min; Est GFR (African American) 78.6; Est GFR (Non-African American) 67.8; Potassium 3.6 mmol/L (3.5-5.1)
--- NOTE | 2019-11-22 12:46 | Pharmacy Report ---
Pharmacy Glycemic Short Note 2 - Date of Service November 22, 2019 - Glycemic Short BSG Results (Last 24 hours): 11/21/19 11/21/19 11/21/19 11:05 11:39 12:43 Glucose POC Glucose 246 H 255 H 287 H 11/21/19 11/21/19 11/22/19 17:03 20:29 08:07 Glucose POC Glucose 257 H 144 H 173 H 11/22/19 11/22/19 09:35 12:08 Glucose 236 H POC Glucose 131 H OUTPATIENT ANTIDIABETIC REGIMEN: * metformin 1000 mg Po BID * A1c = 7.4% (11/04/19) ASSESSMENT: 11/22/19 * POD 1 * Fasting blood sugar this morning 173mg/dl, give one time dose of Lantus now to cover residual effects of steroids given preop yesterday. * No further changes in insulin regimen needed. * May resume home metformin tomorrow. 11/21/19 * Marcell is a 63 yo T2DM male s/p L ankle surgery * He received dexamethasone 8 mg PO pre-op. I anticipate short term steroid induced hyperglycemia. In addition to this, patients baseline BSG was markedly elevated (262 mg/dL). * Pt is maintained on metformin as an outpatient. Will hold metformin and utilize weight based SQ basal/bolus insulin. Metformin will be resumed once evidence of renal function is at baseline and tolerating an oral diet. * A short term IV insulin infusion may be needed if BSG does not start trending downward at dinner. PLAN FOR INPATIENT GLYCEMIC CONTROL: * Hold outpatient oral diabetes medications * Basal insulin * Lantus 15 units SQ x 1 now * Bolus insulin * NovoLog per scale ACHS or Q6hrs while NPO * Goal Range: Low 110 mg/dL - High 140 mg/dL * Correction Factor: 18 mg/dL/unit * Nutritional / Prandial insulin per carb ratio of 1 unit per 6 grams CHO consumed
--- NOTE | 2019-11-22 14:50 | Hospitalist Progress Note ---
Date of Service November 22, 2019 Assessment & Plan (1) Osteoarthritis of left ankle: Pt underwent left total ankle arthroplasty today - Management of pain, DVT prophylaxis, and PT per primary service -No significant pain in left ankle and has been participating in PT and OT -CBC and PRP remain stable (2) DM type 2 (diabetes mellitus, type 2): - Diabetic diet - HOLD Metformin while admitted - Use insulin for management of hyperglycemia while admitted - pharmacy has been consulted for glycemic management - Blood sugars ACHS (3) Depression: - Continue outpatient Effexor (pt took this AM - resume tomorrow) (4) Dyslipidemia: Not currently on any medications for this - occasionally uses supplements. Follow-up with PCP as outpatient Medically stable Admission and Anticipated Discharge Date Admission Date: November 21, 2019 Subjective 11/22/2019 The patient was seen and examined in medical floor He is a status post left ankle arthroplasty POD #1 Minimal pain in the left knee and denies any other symptoms Review of Systems Review of Systems: All systems reviewed and are unremarkable except as noted below Musculoskeletal: Left ankle pain with movement Physical Exam Physical Exam: Lying in bed comfortably Constitutional: well developed, well nourished, + acute distress (Due to left ankle pain) and + obese; not ill appearing Eyes: PERRL, conjunctivae normal, anicteric sclerae ENMT: external ear and nose normal, oropharynx normal Neck: trachea midline, no thyromegaly Respiratory: normal respiratory effort; no respiratory distress Auscultation: lungs clear to auscultation bilaterally Cardiovascular: Rate/Rhythm: regular rate and regular rhythm Heart Sounds: no murmur Gastrointestinal (Abdomen): Inspection/Auscultation: abdomen normal to inspection and normal bowel sounds; abdomen not distended Percussion/Palpation: abdomen soft; abdomen nontender Musculoskeletal: Left ankle pain that is post total ankle arthroplasty Neurologic: Alert, awake and oriented x3 Results & Data Results & Data ([facility]) Vital Signs (Past 12 Hours) Vital Signs Temp Pulse Resp BP BP Pulse Ox 11/22/19 11:52 36.5 C 81 18 153/85 H 95 11/22/19 08:02 36.5 C 81 16 139/80 95 11/22/19 04:06 36.5 C 81 16 132/73 97 Laboratory Results Short CBC 11/22/19 Range/Units 09:35 WBC 11.48 H (4.8-10.8) K/uL Hgb 13.4 L (14.0-18.0) g/dL Hct 40.2 L (42-52) % Plt Count 231 (130-400) K/uL [facility] 11/22/19 09:35 Sodium 138 Potassium 3.6 Chloride 106 Carbon Dioxide 24 BUN 15 Creatinine 1.15 Glucose 236 H Calcium 8.4 L Medications Administered Current Inpatient Medications Acetaminophen (Acetaminophen 500 Mg Tab) 1,000 mg PO Q8 KARLA Stop: 12/21/19 13:59 Last Admin: 11/22/19 12:59 Dose: 1,000 mg Documented by: Aspirin (Aspirin 81 Mg Ectab) 81 mg PO BID KARLA Stop: 12/21/19 20:59 Last Admin: 11/22/19 09:09 Dose: 81 mg Documented by: Bisacodyl (Bisacodyl 10 Mg Supp) 10 mg TN DAILY PRN PRN Reason: Constipation Stop: 12/21/19 12:27 Cyanocobalamin (Cyanocobalamin 500 Mcg Tablet (Vitamin B-12)) 1,000 mcg PO QAM KARLA Stop: 12/22/19 08:59 Last Admin: 11/22/19 09:09 Dose: 1,000 mcg Documented by: Dextrose (Dextrose 50% 50 Ml Syringe) 25 - 50 ml IV UD PRN; Protocol PRN Reason: Hypoglycemia Protocol Stop: 12/21/19 12:59 Diphenhydramine HCl (Diphenhydramine Hcl 25 Mg Cap) 25 mg PO Q8H PRN PRN Reason: Itching Stop: 12/21/19 12:27 Docusate Sodium (Docusate Sodium 100 Mg Cap) 100 mg PO BID KARLA Stop: 12/21/19 20:59 Last Admin: 11/22/19 09:08 Dose: 100 mg Documented by: Glucagon (Glucagon For Inj 1 Mg Vial) 1 mg SQ UD PRN; Protocol PRN Reason: Hypoglycemia Protocol Stop: 12/21/19 12:59 Glucose (Glucose 40% Gel 15 Gm Tube) 15 - 30 gm PO UD PRN; Protocol PRN Reason: Hypoglycemia Protocol Stop: 12/21/19 12:59 Glucose (Glucose 10 Tabs/Tube) 4 - 8 tabs PO UD PRN; Protocol PRN Reason: Hypoglycemia Protocol Stop: 12/21/19 12:59 Hydromorphone HCl (Hydromorphone Inj 0.5 Mg/0.5 Ml Syr) 0.5 mg IV Q4H PRN PRN Reason: Pain or Pre PT Stop: 12/05/19 12:27 Insulin Aspart (Insulin Aspart 100 Units/Ml 3 Ml Pen) 0 units SC ACHS [facility] Stop: 12/21/19 12:59 Last Admin: 11/22/19 12:51 Dose: 7 units Documented by: Magnesium Hydroxide (Magnesium Hydroxide Susp 30 Ml Udc) 30 ml PO Q6H PRN PRN Reason: Constipation Stop: 12/21/19 12:27 Metoclopramide HCl (Metoclopramide Hcl Inj 5 Mg/Ml 2 Ml Vial) 10 mg IV Q6H PRN PRN Reason: Nausea And Vomiting Stop: 12/21/19 12:27 Miscellaneous (Carbohydrates For Hypoglycemia ) 15 - 30 gm PO UD PRN PRN Reason: Hypoglycemia Treatment Stop: 12/21/19 12:59 Miscellaneous Information (Pharmacy Glycemic Mgmt Consult) 1 ea N/A UD PRN PRN Reason: Consult Stop: 12/21/19 12:39 Multivitamins (Multivitamin Tab) 1 tab PO QAM [facility] Stop: 12/22/19 08:59 Last Admin: 11/22/19 09:09 Dose: 1 tab Documented by: Naloxone HCl (Naloxone Hcl 0.4 Mg/1 Ml Vial/Carp) 0.1 mg IV Q5M PRN PRN Reason: Oversedation/Resp Depression Stop: 12/21/19 12:27 Ondansetron HCl (Ondansetron Inj 2 Mg/Ml 2 Ml Vial) 4 mg IV Q6H PRN PRN Reason: Nausea And Vomiting Stop: 12/21/19 12:27 Oxycodone HCl (Oxycodone Hcl Ir 5 Mg Tab (Immediate Release)) 5 - 10 mg PO Q4H PRN PRN Reason: Pain or Pre PT Stop: 12/05/19 12:27 Sennosides (Senna 8.6 Mg Tab) 17.2 mg PO HS [facility] Stop: 12/21/19 20:59 Last Admin: 11/21/19 20:26 Dose: Not Given Documented by: Tamsulosin HCl (Tamsulosin Hcl 0.4 Mg Cap) 0.4 mg PO QAM PRN PRN Reason: unable to void Stop: 12/21/19 12:27 Venlafaxine HCl (Venlafaxine Hcl Xr 75 Mg Capxr) 75 mg PO QAM KARLA Stop: 12/22/19 08:59 Last Admin: 11/22/19 09:09 Dose: 75 mg Documented by: Venlafaxine HCl (Venlafaxine Hcl Xr 150 Mg Capxr) 150 mg PO QAM [facility] Stop: 12/22/19 08:59 Last Admin: 11/22/19 09:09 Dose: 150 mg Documented by: (1) Osteoarthritis of left ankle Osteoarthritis type: unspecified Qualified Code(s): M19.072 - Primary osteoarthritis, left ankle and foot (2) DM type 2 (diabetes mellitus, type 2) Diabetes mellitus supervisor long goods insulin use: without supervisor long goods use
[2019-11-22] MEDS ORDERED: OXYCODONE IR HOME PACK PO ONE (16:45)
[2019-11-22] MEDS ORDERED: METFORMIN HCL 500 MG TAB PO SCH (21:00)
--- NOTE | 2019-11-28 09:41 | Discharge Summary ---
Date of Service November 28, 2019 Admission HPI Per Admitting Provider This is a patient who has a long hx of left ankle pain. He was treated conservatively for left ankle osteoarthritis. However, he has failed all conservative management and is now being set up for surgical management. Principal Diagnosis left ankle osteoarthritis Discharge Exam Constitutional well developed and well nourished; no acute distress ENMT external ear and nose normal, oropharynx normal Neck trachea midline, no thyromegaly Respiratory normal respiratory effort Auscultation: lungs clear to auscultation bilaterally and + diminished lung sounds Cardiovascular Rate/Rhythm: regular rate and regular rhythm Gastrointestinal (Abdomen) normal bowel sounds, soft, nontender, no hepatosplenomegaly Musculoskeletal Gait: + antalgic gait (left) Ankle: + surgical incision (left ankle in posterior/stirrup splint. Splint C/D/I.); no skin erythema and no ecchymosis Skin no rashes, warm and dry Neurologic normal touch/pain/proprioception Psychiatric A+Ox3, euthymic affect Speech: normal rate/rhythm/volume of speech Lymphatic no cervical or axillary lymphadenopathy Discharge Data Allergies Allergy/AdvReac Type Severity Reaction Status Date / Time fluticasone Allergy Mild Rash Verified 11/21/19 05:37 Consultations 11/21/19 11:26 Consult Hospitalist Routine 11/21/19 12:28 Consult Case Management - Discharge Planning Routine Consult Hospitalist Routine Procedures Performed Operation Date: 11/21/19 07:15 Actual Procedures p Left Total Ankle Arthroplasty,(Left) - Arcadio Stover DO s Percutaneous Tendon Achilles Lenghtening, Application of Platelet-Rich Plasma - Arcadio Stover DO Ordered Studies 11/18/19 10:20 US - OR guided needle placemen Routine 11/21/19 05:00 US - OR guided needle placemen Routine 11/21/19 07:15 FL ankle LT 2V Routine FL fluoroscopy <1hr Routine Hospital Course (1) Osteoarthritis of left ankle: Postop day 1 PT/OT protocols. Nonweightbearing left lower extremity DVT prophylaxis-aspirin p.o. twice daily, SCDs Pain management as written. Medical management as per [facility] service. Labs pending this morning DC plans-plan for discharge to home if remaining medically/ orthopedically stable. Total Time Total Time Spent Total Time Spent (In Minutes): 30 Total Time Includes: Examination of the Patient, Discharge Planning and Medication Reconciliation Discharge Plan Discharge Items Patient Disposition: Home - Self-Care Reason For Visit: Osteoarthritis, Left Ankle Discharge Diagnosis: left ankle osteoarthritis Activity: Per Instructions section Weightbearing: Left non-weightbearing Weightbearing Comment: With walker or crutches Non-emergency contact: Surgeon Call non-emergency contact if: your pain is not controlled, your pain is worsening and your temperature is above 101 Follow-up/Referrals: Candy Tinajero MD [Primary Care Provider] - Diet: Carb Consistent or DM2 Addtl Attending Provider Instructions: ACTIVITY RECOMMENDATIONS: Limitations: No weight bearing to affected limb at all times. SPECIAL CARE INSTRUCTIONS: * You will take Aspirin 81 mg every 12 hours for 30 days after your surgery for blood clot prophylaxis. * Some drainage onto the dressing is normal and is no cause for alarm. * Some swelling is natural especially after walking. * When resting, keep your foot elevated above the level of your heart. * Call [facility] if you notice: -Increased drainage -Fever over 101 degrees F -Severe constant pain BANDAGE: * Leave bandage/cast in place unless otherwise directed. * Keep bandage/cast dry at all times. FOLLOW UP VISIT WITH DR. STOVER If appointment is not already scheduled: Please call [facility] after you get home today to schedule a follow-up appointment for [address] Stover at . Pending Studies at Discharge: No Stand-Alone Forms: My [employer], Smoking Cessation Medications and DC Order Prescriptions: New aspirin 81 mg Tablet,Delayed Release (Dr/Ec) 81 mg PO BID 30 Days Qty: 60 RF: 0 acetaminophen 500 mg Tablet 1,000 mg PO Q8 14 Days Qty: 84 RF: 0 oxycodone 5 mg Tablet 5 mg PO Q4H MDD 6 PRN (Reason: pain) Qty: 30 RF: 0 Continued venlafaxine [Effexor XR] 75 mg Capsule,Extended Release 24hr 75 mg PO QAM RF: 0 venlafaxine [Effexor XR] 150 mg Capsule,Extended Release 24hr 150 mg PO QAM RF: 0 cyanocobalamin (vitamin B-12) [Vitamin B-12] 1,000 mcg Tablet 1,000 mcg PO QAM RF: 0 metformin 1,000 mg Tablet 1,000 mg PO BID RF: 0 Potassium -- Otc 1 dose PO QAM RF: 0 Discontinued aspirin 81 mg Tablet,Delayed Release (Dr/Ec) 81 mg PO QAM RF: 0 Discharge Orders: Discharge Order (Routine); Ordered 11/22/19 Ordered By: Arcdaio Stover Admission Data Admit Date/Time: 11/21/19 11:28 Attending Provider: Arcadio Stover Admit Provider: Christopher Muller Primary Care Provider: Candy Tinajero Other Providers: Aric Watson ; Edison Adams ; Rommel Lee ; Serene Torres ; Rosalba Montgomery ; Cori Montenegro ; Tameka Sahni ; Biju Schmidt ; Stewart Marcos ; Jatinder Colvin ; Lamar Alonso ; Sheila Sanchez ; Cynthia Parisi ; Dae Sampson ; Best Jackman ; Aleta Sigala ; Franklyn Hercules ; Brandie Matthews ; Best Lopez ; Radha Correa ; Betty Ponce ; Se Reich ; Armida Feng I. ; Miguel A Fonseca Other Interventions: Discharge Summary Assessment (RN) Last Done: 11/22/19 16:25
== END 2019-11-22 17:53 | disposition home or self-care (01) | DRG 469 ==
LOC: ASU 05:12 → 3E 11:28